=== PATIENT | female | born 1960 | race Caucasian/White ===

== ENCOUNTER 2017-08-30 10:35 | Emergency (ER) | payer MEDICARE ==
[2017-08-30 10:47] LABS: URINE APPEARANCE CLEAR; URINE BILIRUBIN NEGATIVE (NEGATIVE); URINE BLOOD NEGATIVE (NEGATIVE); URINE COLOR YELLOW; URINE GLUCOSE (UA) NEGATIVE (NEGATIVE); URINE KETONE NEGATIVE (NEGATIVE); URINE LEUKOCYTE ESTERASE NEGATIVE (NEGATIVE); URINE NITRITE NEGATIVE (NEGATIVE); URINE PROTEIN NEGATIVE (NEGATIVE); URINE UROBILINOGEN 0.2 E.U./dL (0.20 - 1.00)
[2017-08-30] MEDS ORDERED: ONDANSETRON HCL IV 4 MG/2 ML VIAL IV ONE (11:20)
[2017-08-30] MEDS ORDERED: 0.9 % SODIUM CHLORIDE 1,000 ML BAG IV ONE (11:20)
[2017-08-30 11:44] LABS: BASO % 0.3 % (0-6); EOS % 1.6 % (0-6); GRAN % 64.6 % (47-80); HEMATOCRIT 44.1 % (35.0-47.0); HEMOGLOBIN 14.9 gm/dl (11.6-16.0); MEAN CELL VOLUME 87.7 fl (81-97); MEAN CORPUSCULAR HEMOGLOBIN 29.6 pg (27-33); MEAN CORPUSCULAR HGB CONC 33.8 g/dl (32-36); MEAN PLATELET VOLUME 10.2 fl (7.4-10.4); MONO % 6.5 % (0-9); PLATELET COUNT 315 K/uL (130-400); RED BLOOD COUNT 5.03 M/uL (3.80-5.40); WHITE BLOOD COUNT W/O DIFF 10.3 K/uL (4.2-12.2)
[2017-08-30 11:55] LABS: BLOOD UREA NITROGEN 10 mg/dL (6-20); CREATININE 0.7 mg/dL (0.5-0.9); EST GLOMERULAR FILTRATION RATE > 60 mL/min
[2017-08-30 11:56] LABS: TOTAL PROTEIN 7.5 g/dL (6.6-8.7)
[2017-08-30 11:58] LABS: GLUCOSE,RANDOM 99 mg/dL (74-109)
[2017-08-30 12:00] LABS: ALB/GLOB RATIO 1.3 (1.1-1.8); ALBUMIN 4.3 g/dL (4.0-5.0); ALT/SGPT 14 U/L (<33); AST/SGOT 17 U/L (10.0-35.0)
[2017-08-30 12:01] LABS: ALKALINE PHOSPHATASE 94 U/L (35-104); LIPASE 18 U/L (13-60)
--- NOTE | 2017-08-30 14:29 | Emergency Department Record ---
History of Present Illness - General Chief Complaint: Abdominal Pain Stated Complaint: STOMACH PAIN Time Seen by Provider: 08/30/17 10:57 Source: Patient Mode of Arrival: Ambulatory Limitations: No limitations - History of Present Illness Initial Comments: pt has been having llq abd pain for 4 days that feels like her previous colitis. MD Complaint: Abdominal pain Onset/Timin -: Days(s) Location: Diffuse Radiation: LLQ Severity: Moderate Quality: Aching Consistency: Constant - Related Data Patient : No Previous Rx's Medication Instructions Recorded Ciprofloxacin HCl [Cipro] 500 mg PO Q12HR #20 tablet 08/30/17 Metronidazole [Flagyl] 500 mg PO TID #30 tablet 08/30/17 Ondansetron [Zofran Odt] 4 mg PO Q8H #10 tab.rapdis 08/30/17 Allergies Allergy/AdvReac Type Severity Reaction Status Date / Time aripiprazole [From Abilify] Allergy HIVES Verified 08/30/17 10:45 duloxetine HCl Allergy HIVES Verified 08/30/17 10:45 [From Cymbalta] hydrochlorothiazide Allergy HIVES Verified 08/30/17 10:45 tramadol HCl [From Ultram] Allergy BLURRED Verified 08/30/17 10:45 VISION Travel Screening - Travel/Exposure Within Last 30 Days Have you traveled within the last 30 days?: No - Travel/Exposure Within Last Year Have you traveled outside the [place] in the last year?: No - Additonal Travel Details Have you been exposed to anyone with a communicable illness?: No - Travel Symptoms Symptom Screening: None Review of Systems Reviewed: No additional complaints except as noted below Constitutional: Reports: As per HPI. Denies: Chills, Fever, Malaise, Night sweats, Weakness, Weight change Eyes: Reports: As per HPI. Denies: Eye discharge, Eye pain, Photophobia, Vision change ENT: Reports: As per HPI. Denies: Congestion, Dental pain, Ear pain, Epistaxis , Hearing loss, Throat pain Respiratory: Reports: As per HPI. Denies: Cough, Dyspnea, Hemoptysis, Stridor, Wheezes Cardiovascular: Reports: As per HPI. Denies: Arrhythmia, Chest pain, Dyspnea on exertion, Edema, Murmurs, Orthopnea, Palpitations, Paroxysmal nocturnal dyspnea, Rheumatic Fever, Syncope Endocrine: Reports: As per HPI. Denies: Fatigue, Heat or cold intolerance, Polydipsia, Polyuria Gastrointestinal: Reports: As per HPI. Denies: Abdominal pain, Constipation, Diarrhea, Hematemesis, Hematochezia, Melena, Nausea, Vomiting Genitourinary: Reports: As per HPI. Denies: Abnormal menses, Discharge, Dyspareunia, Dysuria, Frequency, Hematuria, Incontinence, Retention, Urgency Musculoskeletal: Reports: As per HPI. Denies: Arthralgia, Back pain, Gout, Joint swelling, Myalgia, Neck pain Skin: Reports: As per HPI. Denies: Bruising, Change in color, Change in hair/ nails, Lesions, Pruritus, Rash Neurological: Reports: As per HPI. Denies: Abnormal gait, Confusion, Headache, Numbness, Paresthesias, Seizure, Tingling, Tremors, Vertigo, Weakness Psychiatric: Reports: As per HPI. Denies: Anxiety, Auditory hallucinations, Depression, Homicidal thoughts, Suicidal thoughts, Visual hallucinations Hematological/Lymphatic: Reports: As per HPI. Denies: Anemia, Blood Clots, Easy bleeding, Easy bruising, Swollen glands Past Medical History - SOCIAL HISTORY Smoking Status: Current some day smoker Alcohol Use: None Drug Use: None - RESPIRATORY Hx Respiratory Disorders: Yes Hx COPD: Yes - CARDIOVASCULAR Hx Cardio Disorders: Yes Hx Abnormal EKG: Yes Hx Cardiac Cath: Yes (2001, 2005, 2009, 2010, 2013) Hx Chest Pain: No Hx Deep Vein Thrombosis: No Hx Heart Attack: Yes (2001, 2005, 2012, 2013) Hx Hypertension: Yes Hx Coronary Stent: Yes (only one) - NEURO Hx Neuro Disorders: Yes Hx of Migraines: Yes - GI Hx GI Disorders: Yes Hx Abdominal Pain: Yes Hx Diverticulitis: Yes Hx Reflux: Yes Hx Nausea/Vomiting: Yes - Hx Genitourinary Disorders: No Comment:: hyst - ENDOCRINE Hx Endocrine Disorders: Yes Hx Thyroid Disease: Yes (enlarged thyroid) - MUSCULOSKELETAL Hx Musculoskeletal Disorders: Yes Hx Arthritis: Yes (psoriatic) Hx Fibromyalgia: Yes - PSYCH Hx Psych Problems: Yes Hx Anxiety: Yes Hx Depression: Yes - HEMATOLOGY/ONCOLOGY Hx Hematology/Oncology Disorders: Yes Hx Cancer: Yes (cervical) Hx Chemotherapy: No Hx Radiation Therapy: No Family Medical History Any Significant Family History?: Yes Hx Heart Disease: Father, Mother Hx HTN: Father, Mother Hx Stroke: Father, Mother Physical Exam - General General Appearance: Alert, Oriented x3, Cooperative, No acute distress - Head Head exam: Normal inspection - Eye Eye exam: Normal appearance, PERRL, EOMI Pupils: Normal accommodation - ENT ENT exam: Normal exam, Mucous membranes moist, Normal external ear exam, Normal orophraynx Ear exam: Normal external inspection. negative: External canal tenderness Nasal Exam: Normal inspection. negative: Discharge, Sinus tenderness Mouth exam: Normal external inspection, Tongue normal Teeth exam: Normal inspection. negative: Dental caries Throat exam: Normal inspection. negative: Tonsillar erythema, Tonsillar exudate - Neck Neck exam: Normal inspection, Full ROM. negative: Tenderness - Respiratory Respiratory exam: Normal lung sounds bilaterally. negative: Respiratory distress - Cardiovascular Cardiovascular Exam: Regular rate, Normal rhythm, Normal heart sounds - GI/Abdominal GI/Abdominal exam: Soft, Normal bowel sounds, Tenderness (llq) - Rectal Rectal exam: Deferred - exam: Deferred - Extremities Extremities exam: Normal inspection, Full ROM, Normal capillary refill. negative: Tenderness - Back Back exam: Reports: Normal inspection, Full ROM. Denies: Muscle spasm, Rash noted, Tenderness - Neurological Neurological exam: Alert, Normal gait, Oriented X3, Reflexes normal - Psychiatric Psychiatric exam: Normal affect, Normal mood - Skin Skin exam: Dry, Intact, Normal color, Warm Course Vital Signs 08/30/17 08/30/17 10:40 13:59 Temperature 98.3 F Pulse Rate 59 L Pulse Rate [ 64 Pulse Ox Probe] Respiratory 16 16 Rate Blood Pressure 141/104 Blood Pressure 159/93 [Left Arm] Pulse Ox 95 99 Medical Decision Making - Lab Data Result diagrams: 08/30/17 11:35 08/30/17 11:35 Lab Results 08/30/17 08/30/17 08/30/17 Range/Units 10:40 11:20 11:35 WBC 10.3 (4.2-12.2) K/uL RBC 5.03 (3.80-5.40) M/uL Hgb 14.9 (11.6-16.0) gm/dl Hct 44.1 (35.0-47.0) % MCV 87.7 (81-97) fl MCH 29.6 (27-33) pg MCHC 33.8 (32-36) g/dl RDW 14.0 (11.5-14.5) % Plt Count 315 (130-400) K/uL MPV 10.2 (7.4-10.4) fl Gran % 64.6 (47-80) % Lymphocytes % 27.0 (16-45) % Monocytes % 6.5 (0-9) % Eosinophils % 1.6 (0-6) % Basophils % 0.3 (0-6) % Sodium (136-145) mmol/L Potassium (3.4-4.5) mmol/L Chloride (98-107) mmol/L Carbon Dioxide (22-29) mmol/L Anion Gap (7-16) BUN (6-20) mg/dL Creatinine (0.5-0.9) mg/dL Estimated GFR mL/min Random Glucose (74-109) mg/dL Calcium (8.6-10.0) mg/dL Total Bilirubin (0.2-1.0) mg/dL AST (10.0-35.0) U/L ALT (<33) U/L Alkaline Phosphatase (35-104) U/L Total Protein (6.6-8.7) g/dL Albumin (4.0-5.0) g/dL Globulin (1.4-4.8) gm/dL Albumin/Globulin Ratio (1.1-1.8) Lipase (13-60) U/L Urine Color Yellow Cancelled Urine Appearance Clear Cancelled Urine pH 6.0 Cancelled (5.0-8.0) Ur Specific Spencer 1.010 Cancelled (1.002-1.030) Urine Protein Negative Cancelled (NEGATIVE) Urine Glucose (UA) Negative Cancelled (NEGATIVE) Urine Clinitest Cancelled Urine Ketones Negative Cancelled (NEGATIVE) Urine Blood Negative Cancelled (NEGATIVE) Urine Nitrite Negative Cancelled (NEGATIVE) Urine Bilirubin Negative Cancelled (NEGATIVE) Urine Ictotest Cancelled Prot Sulfosalicylic Acd Cancelled Urine Urobilinogen 0.2 Cancelled (0.20 - 1.00) E.U./dL Ur Leukocyte Esterase Negative Cancelled (NEGATIVE) 08/30/17 Range/Units 11:35 WBC (4.2-12.2) K/uL RBC (3.80-5.40) M/uL Hgb (11.6-16.0) gm/dl Hct (35.0-47.0) % MCV (81-97) fl MCH (27-33) pg MCHC (32-36) g/dl RDW (11.5-14.5) % Plt Count (130-400) K/uL MPV (7.4-10.4) fl Gran % (47-80) % Lymphocytes % (16-45) % Monocytes % (0-9) % Eosinophils % (0-6) % Basophils % (0-6) % Sodium 139 (136-145) mmol/L Potassium 4.1 (3.4-4.5) mmol/L Chloride 101 (98-107) mmol/L Carbon Dioxide 28.0 (22-29) mmol/L Anion Gap 10.0 (7-16) BUN 10 (6-20) mg/dL Creatinine 0.7 (0.5-0.9) mg/dL Estimated GFR > 60 mL/min Random Glucose 99 (74-109) mg/dL Calcium 9.2 (8.6-10.0) mg/dL Total Bilirubin 0.30 (0.2-1.0) mg/dL AST 17 (10.0-35.0) U/L ALT 14 (<33) U/L Alkaline Phosphatase 94 (35-104) U/L Total Protein 7.5 (6.6-8.7) g/dL Albumin 4.3 (4.0-5.0) g/dL Globulin 3.2 (1.4-4.8) gm/dL Albumin/Globulin Ratio 1.3 (1.1-1.8) Lipase 18 (13-60) U/L Urine Color Urine Appearance Urine pH (5.0-8.0) Ur Specific Spencer (1.002-1.030) Urine Protein (NEGATIVE) Urine Glucose (UA) (NEGATIVE) Urine Clinitest Urine Ketones (NEGATIVE) Urine Blood (NEGATIVE) Urine Nitrite (NEGATIVE) Urine Bilirubin (NEGATIVE) Urine Ictotest Prot Sulfosalicylic Acd Urine Urobilinogen (0.20 - 1.00) E.U./dL Ur Leukocyte Esterase (NEGATIVE) Disposition Disposition: Discharge Clinical Impression: Colitis Disposition: Home, Self-Care Condition: (1) Good Instructions: Colitis (ED) Additional Instructions: follow up with family doctor. return sooner if worse. Prescriptions: Ciprofloxacin HCl [Cipro] 500 mg PO Q12HR #20 tablet Metronidazole [Flagyl] 500 mg PO TID #30 tablet Ondansetron [Zofran Odt] 4 mg PO Q8H #10 tab.rapdis Forms: Patient Portal Access Quality - Quality Measures Quality Measures: N/A - Blood Pressure Screening Does Patient Have Any of the Following: No Blood Pressure Classification: Hypertensive Reading Systolic Measurement: 141 Diastolic Measurement: 104 Screening for High Blood Pressure: < First Hypertensive BP, F/U Documented > [ G8950] First Hypertensive Follow-up Interventions: Follow-up with rescreen GT 1 day and LT 4 weeks.
--- NOTE | 2017-08-31 07:27 | CT SCAN REPORT ---
EXAM: CT OF THE ABDOMEN AND PELVIS HISTORY: LEFT LOWER QUADRANT PAIN. TECHNIQUE: CT of the abdomen and pelvis was performed following the IV administration of 100 ml of Omnipaque 300 contrast. Oral contrast was also utilized. Comparison: Prior CT from 06/30/15. FINDINGS: Limited evaluation of the lung bases is unremarkable. The osseous structures are grossly intact. The liver, spleen, adrenal glands, pancreas, and kidneys are unremarkable. The gallbladder is present. There is a large amount of stool in the colon. No gross evidence for bowel obstruction. Normal appendix. There is wall thickening of the rectosigmoid colon with minor surrounding inflammation consistent with nonspecific colitis. No definitive diverticula in the region. No free air or free fluid. Presumed hysterectomy. IMPRESSION: NONSPECIFIC WALL THICKENING OF THE RECTOSIGMOID COLON WITH MINOR SURROUNDING INFLAMMATION, CONSISTENT WITH NONSPECIFIC COLITIS. JOB NUMBER: [id number] MTDD
== END 2017-08-30 14:47 | disposition home or self-care (01) ==
LOC: ER 10:35
DX: K52.9 Noninfective gastroenteritis and colitis, unspecified (principal); R10.32 Left lower quadrant pain; I10 Essential (primary) hypertension; I25.2 Old myocardial infarction; F17.210 Nicotine dependence, cigarettes, uncomplicated
CPT/HCPCS: 99284 ×2; 96374; 83690; 85025; 80053; 81003; 74177; Q9967; J2405; J7030

== ENCOUNTER 2018-08-11 10:25 | Emergency (ER) | payer MEDICARE ==
--- NOTE | 2018-08-11 10:48 | Emergency Department Record ---
History of Present Illness - General Chief complaint: Lower Extremity Pain Stated complaint: L GREAT TOE INFECTION Time Seen by Provider: 08/11/18 10:39 Source: Patient Mode of Arrival: Ambulatory Limitations: No limitations (pt ) - History of Present Illness Initial comments: pt had a toenail removed because of infxn 5 days ago. she was given 5 days of bactrim. she states she is better but it is still not totally improved and it is still draining green drainage. MD Complaint: Extremity pain Onset/Timin -: Days(s) Location: Foot History of Same: No Radiation: None Improves with: Nothing Worsens with: Nothing Associated Symptoms: Denies other symptoms - Related Data Previous Rx's Medication Instructions Recorded Sulfamethoxazole/Trimethoprim 1 each PO BID #10 tablet 08/11/18 [Bactrim Ds Tablet] Allergies Allergy/AdvReac Type Severity Reaction Status Date / Time aripiprazole [From Abilify] Allergy HIVES Verified 08/11/18 10:32 duloxetine HCl Allergy HIVES Verified 08/11/18 10:32 [From Cymbalta] hydrochlorothiazide Allergy HIVES Verified 08/11/18 10:32 tramadol HCl [From Ultram] AdvReac BLURRED Verified 08/11/18 10:32 VISION Travel Screening - Travel/Exposure Within Last 30 Days Have you traveled within the last 30 days?: No Review of Systems Reviewed: No additional complaints except as noted below Constitutional: Reports: As per HPI. Denies: Chills, Fever, Malaise, Night sweats, Weakness, Weight change Eyes: Reports: As per HPI. Denies: Eye discharge, Eye pain, Photophobia, Vision change ENT: Reports: As per HPI. Denies: Congestion, Dental pain, Ear pain, Epistaxis , Hearing loss, Throat pain Respiratory: Reports: As per HPI. Denies: Cough, Dyspnea, Hemoptysis, Stridor, Wheezes Cardiovascular: Reports: As per HPI. Denies: Arrhythmia, Chest pain, Dyspnea on exertion, Edema, Murmurs, Orthopnea, Palpitations, Paroxysmal nocturnal dyspnea, Rheumatic Fever, Syncope Endocrine: Reports: As per HPI. Denies: Fatigue, Heat or cold intolerance, Polydipsia, Polyuria Gastrointestinal: Reports: As per HPI. Denies: Abdominal pain, Constipation, Diarrhea, Hematemesis, Hematochezia, Melena, Nausea, Vomiting Genitourinary: Reports: As per HPI. Denies: Abnormal menses, Discharge, Dyspareunia, Dysuria, Frequency, Hematuria, Incontinence, Retention, Urgency Musculoskeletal: Reports: As per HPI. Denies: Arthralgia, Back pain, Gout, Joint swelling, Myalgia, Neck pain Skin: Reports: As per HPI. Denies: Bruising, Change in color, Change in hair/ nails, Lesions, Pruritus, Rash Neurological: Reports: As per HPI. Denies: Abnormal gait, Confusion, Headache, Numbness, Paresthesias, Seizure, Tingling, Tremors, Vertigo, Weakness Psychiatric: Reports: As per HPI. Denies: Anxiety, Auditory hallucinations, Depression, Homicidal thoughts, Suicidal thoughts, Visual hallucinations Hematological/Lymphatic: Reports: As per HPI. Denies: Anemia, Blood Clots, Easy bleeding, Easy bruising, Swollen glands Past Medical History - SOCIAL HISTORY Smoking Status: Current some day smoker Alcohol Use: None Drug Use: None - RESPIRATORY Hx Respiratory Disorders: Yes Hx COPD: Yes - CARDIOVASCULAR Hx Cardio Disorders: Yes Hx Abnormal EKG: Yes Hx Cardiac Cath: Yes (2001, 2005, 2009, 2010, 2013) Hx Chest Pain: No Hx Deep Vein Thrombosis: No Hx Heart Attack: Yes (2001, 2005, 2012, 2013) Hx Hypertension: Yes Hx Coronary Stent: Yes (only one) - NEURO Hx Neuro Disorders: Yes Hx of Migraines: Yes - GI Hx GI Disorders: Yes Hx Abdominal Pain: Yes Hx Diverticulitis: Yes Hx Reflux: Yes Hx Nausea/Vomiting: Yes - Hx Genitourinary Disorders: Yes Comment:: hyst - ENDOCRINE Hx Endocrine Disorders: Yes Hx Thyroid Disease: Yes (enlarged thyroid) - MUSCULOSKELETAL Hx Musculoskeletal Disorders: Yes Hx Arthritis: Yes (psoriatic) Hx Fibromyalgia: Yes - PSYCH Hx Psych Problems: Yes Hx Anxiety: Yes Hx Depression: Yes - HEMATOLOGY/ONCOLOGY Hx Hematology/Oncology Disorders: Yes Hx Cancer: Yes (cervical) Hx Chemotherapy: No Hx Radiation Therapy: No Family Medical History Any Significant Family History?: Yes Hx Heart Disease: Father, Mother Hx HTN: Father, Mother Hx Stroke: Father, Mother Physical Exam - General General Appearance: Alert, Oriented x3, Cooperative, No acute distress - Head Head exam: Normal inspection - Eye Eye exam: Normal appearance, PERRL, EOMI Pupils: Normal accommodation - ENT ENT exam: Normal exam, Mucous membranes moist, Normal external ear exam, Normal orophraynx Ear exam: Normal external inspection. negative: External canal tenderness Nasal Exam: Normal inspection. negative: Discharge, Sinus tenderness Mouth exam: Normal external inspection, Tongue normal Teeth exam: Normal inspection. negative: Dental caries Throat exam: Normal inspection. negative: Tonsillar erythema, Tonsillar exudate - Neck Neck exam: Normal inspection, Full ROM. negative: Tenderness - Respiratory Respiratory exam: Normal lung sounds bilaterally. negative: Respiratory distress - Cardiovascular Cardiovascular Exam: Regular rate, Normal rhythm, Normal heart sounds - GI/Abdominal GI/Abdominal exam: Soft, Normal bowel sounds. negative: Tenderness - Rectal Rectal exam: Deferred - exam: Deferred - Extremities Extremities exam: Normal inspection, Full ROM, Normal capillary refill, Tenderness (swelling ,tender, slight drainage) - Back Back exam: Reports: Normal inspection, Full ROM. Denies: Muscle spasm, Rash noted, Tenderness - Neurological Neurological exam: Alert, CN II-XII intact, Normal gait, Oriented X3 - Psychiatric Psychiatric exam: Normal affect, Normal mood - Skin Skin exam: Dry, Intact, Normal color, Warm Course Vital Signs 08/11/18 10:28 Temperature 98.0 F Pulse Rate 79 Respiratory 20 Rate Blood Pressure 153/95 Pulse Ox 95 Disposition Disposition: Discharge Clinical Impression: Cellulitis Qualifiers: Site of cellulitis: extremity Site of cellulitis of extremity: toe Laterality: left Qualified Code(s): L03.032 - Cellulitis of left toe Disposition: Home, Self-Care Condition: (1) Good Instructions: Cellulitis (ED) Additional Instructions: follow up with family doctor. return sooner if worse. elevate foot and continue soaks. Prescriptions: Sulfamethoxazole/Trimethoprim [Bactrim Ds Tablet] 1 each PO BID #10 tablet Quality - Quality Measures Quality Measures: N/A - Blood Pressure Screening Does Patient Have Any of the Following: Active Dx of HTN Blood Pressure Classification: Hypertensive Reading Systolic Measurement: 153 Diastolic Measurement: 95 Screening for High Blood Pressure: Patient Exclusion, Hx of HTN [G9744]
== END 2018-08-11 10:59 | disposition home or self-care (01) ==
LOC: ER 10:25
DX: L03.032 Cellulitis of left toe (principal); I10 Essential (primary) hypertension; F17.210 Nicotine dependence, cigarettes, uncomplicated
CPT/HCPCS: 99282

== ENCOUNTER 2019-06-14 11:30 | Emergency (ER) | payer MEDICARE ==
--- NOTE | 2019-06-14 11:57 | Emergency Department Record ---
History of Present Illness - General Chief Complaint: Abdominal Pain Stated Complaint: ABD PAIN/LOOSE STOOLS Time Seen by Provider: 06/14/19 11:41 Source: Patient, RN notes reviewed Mode of Arrival: Ambulatory - History of Present Illness Initial Comments: LLQ abd pain and diarrhea which started yesterday and recently at [facility] sep 11 throught the 13 with diverticulitis and was treated with cipro and flagyl. Primary is Dr Martinez at [facility]. Located at [facility]. Patient has had diverticulitis 6 times and it alsays feels like this Onset/Timin -: Days(s) Radiation: Suprapubic Quality: Aching, Cramping Improves With: Nothing Worsens With: Nothing Associated Symptoms: Diarrhea, Nausea - Related Data Previous Rx's Medication Instructions Recorded Ciprofloxacin HCl [Cipro] 500 mg PO Q12HR #20 tablet 06/14/19 Metronidazole [Flagyl] 500 mg PO Q8H #30 tablet 06/14/19 Allergies Allergy/AdvReac Type Severity Reaction Status Date / Time aripiprazole [From Abilify] Allergy HIVES Verified 06/14/19 11:50 duloxetine HCl Allergy HIVES Verified 06/14/19 11:50 [From Cymbalta] hydrochlorothiazide Allergy HIVES Verified 06/14/19 11:50 tramadol HCl [From Ultram] AdvReac BLURRED Verified 06/14/19 11:50 VISION Travel Screening - Travel/Exposure Within Last 30 Days Have you traveled within the last 30 days?: No - Travel/Exposure Within Last Year Have you traveled outside the [place] in the last year?: No - Additonal Travel Details Have you been exposed to anyone with a communicable illness?: No - Travel Symptoms Symptom Screening: Diarrhea Past Medical History - SOCIAL HISTORY Smoking Status: Current some day smoker Alcohol Use: None Drug Use: Heavy Drug Use Detail:: Marijuana - RESPIRATORY Hx Respiratory Disorders: Yes Hx COPD: Yes - CARDIOVASCULAR Hx Cardio Disorders: Yes Hx Abnormal EKG: Yes Hx Cardiac Cath: Yes (2001, 2005, 2009, 2010, 2013) Hx Chest Pain: No Hx Deep Vein Thrombosis: No Hx Heart Attack: Yes (2001, 2005, 2012, 2013) Hx Hypertension: Yes Hx Coronary Stent: Yes (only one) - NEURO Hx Neuro Disorders: Yes Hx of Migraines: Yes - GI Hx GI Disorders: Yes Hx Abdominal Pain: Yes Hx Diverticulitis: Yes Hx Reflux: Yes Hx Nausea/Vomiting: Yes - Hx Genitourinary Disorders: Yes Comment:: hyst - ENDOCRINE Hx Endocrine Disorders: Yes Hx Thyroid Disease: Yes (enlarged thyroid) - MUSCULOSKELETAL Hx Musculoskeletal Disorders: Yes Hx Arthritis: Yes (psoriatic) Hx Fibromyalgia: Yes - PSYCH Hx Psych Problems: Yes Hx Anxiety: Yes Hx Depression: Yes - HEMATOLOGY/ONCOLOGY Hx Hematology/Oncology Disorders: Yes Hx Cancer: Yes (cervical) Hx Chemotherapy: No Hx Radiation Therapy: No Family Medical History Any Significant Family History?: No Hx Heart Disease: Father, Mother Hx HTN: Father, Mother Hx Stroke: Father, Mother Course Vital Signs 06/14/19 11:41 Temperature 98.2 F Pulse Rate 80 Respiratory 20 Rate Blood Pressure 165/84 Pulse Ox 98 Medical Decision Making - Lab Data Result diagrams: 06/14/19 11:59 06/14/19 11:59 Disposition Clinical Impression: Diverticulitis Disposition: Home, Self-Care Condition: (1) Good Instructions: Abdominal Pain (ED), Diverticulitis (ED) Additional Instructions: follow up with family Dr next week clear liquids today and than low fiber diet tomorrow continue her norco and fentanyl which she already has Prescriptions: Ciprofloxacin HCl [Cipro] 500 mg PO Q12HR #20 tablet Metronidazole [Flagyl] 500 mg PO Q8H #30 tablet Forms: Patient Portal Access Time of Disposition: 13:39 Quality - Quality Measures Quality Measures: N/A - Blood Pressure Screening Does Patient Have Any of the Following: No Blood Pressure Classification: Pre-Hypertensive BP Reading Systolic Measurement: 165 Diastolic Measurement: 84 Screening for High Blood Pressure: < Pre-Hypertensive BP, F/U Documented > [G8950] Pre-Hypertensive Follow-up Interventions: Referral to alternative/primary care provider.
[2019-06-14] MEDS ORDERED: 0.9 % SODIUM CHLORIDE 1000ML 1,000 ML IV SCH (12:15)
[2019-06-14 12:16] LABS: HEMATOCRIT 43.8 % (35.0-47.0); HEMOGLOBIN 14.4 gm/dl (11.6-16.0); MEAN CELL VOLUME 85.7 fl (81-97); MEAN CORPUSCULAR HEMOGLOBIN 28.2 pg (27-33); MEAN CORPUSCULAR HGB CONC 32.9 g/dl (32-36); MEAN PLATELET VOLUME 10.2 fl (7.4-10.4); PLATELET COUNT 320 K/uL (130-400); RED BLOOD COUNT 5.11 M/uL (3.80-5.40); RED CELL DISTRIBUTION WIDTH 15.2 % (11.5-14.5); WHITE BLOOD COUNT W/O DIFF 15.7 K/uL (4.2-12.2)
[2019-06-14 12:27] LABS: PLATELET ESTIMATE NORMAL (NORMAL)
[2019-06-14 12:30] LABS: BLOOD UREA NITROGEN 12 mg/dL (6-20); CREATININE 0.7 mg/dL (0.5-0.9); EST GLOMERULAR FILTRATION RATE > 60 mL/min
[2019-06-14 12:33] LABS: GLUCOSE,RANDOM 102 mg/dL (74-109)
== END 2019-06-14 14:09 | disposition home or self-care (01) ==
LOC: ER 11:30
DX: A04.72 Enterocolitis due to Clostridium difficile, not specified as recurrent (principal); K57.92 Diverticulitis of intestine, part unspecified, without perforation or abscess without bleeding; I10 Essential (primary) hypertension; F17.210 Nicotine dependence, cigarettes, uncomplicated
CPT/HCPCS: 80048; 85027; 87493; 99284